=== PATIENT | female | born 1960 | race Caucasian/White ===

== ENCOUNTER 2017-06-30 12:20 | Emergency (ER) | payer OTHER ==
[~2017-06-30] VITALS: Ht 162.6 cm; Wt 74.8 kg
[2017-06-30] MEDS ORDERED: METFORMIN HCL850 MG PO (12:40)
== END 2017-06-30 13:48 | disposition home or self-care (01) ==
LOC: ER 12:20
DX: L50.8 Other urticaria (principal)